=== PATIENT | female | born 1955 | race Caucasian/White ===

== ENCOUNTER → 2018-12-28 | Outpatient (CLI) | payer OTHER ==
--- NOTE | 2018-12-28 16:21 | RAD ---
MR of the right hip HISTORY: Right hip and thigh pain, getting worse. TECHNIQUE: Routine multiplanar sequences are obtained. FINDINGS: Abnormal signal within the right femoral head, centered anterosuperiorly, characteristic of osteonecrosis. There may be minimal subchondral bone plate collapse. Moderate right hip DJD. Small right hip joint effusion. No evidence of labral detachment. Mild soft tissue edema about the right hip. Gluteus minimus and medius tendons are intact. Hamstring tendon attachment is intact. Iliopsoas and rectus femoris tendon attachments are intact. IMPRESSION: 1. 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 2. Moderate right hip DJD. 3. Small right hip joint effusion. Electronically signed by: Jovany Gordon MD (12/28/2018 4:18 PM) [facility]
== END | disposition home or self-care (01) ==
LOC: MRI 11:28
PROVIDERS: ATTEND Orthopaedic Surgery
DX: M16.11 Unilateral primary osteoarthritis, right hip (principal); M25.451 Effusion, right hip; M87.851 Other osteonecrosis, right femur
CPT/HCPCS: 73721

== ENCOUNTER 2019-01-11 10:12 | Day surgery (SDC) | payer OTHER ==
[~2019-01-11] VITALS: Ht 162.6 cm; Wt 59.0 kg
[~2019-01-11 10:12] MED LIST: ASCO1TAB14 PO; ASCO500C PO; CYCL10TA2 PO; ELDE1CAP PO; HYDROmorphone 2 MG/ML VIAL IV PRN; IV RINGERS,LACTATED 1000ML 1,000 ML IV SCH; LIDOCAINE 1% PF 2 ML VIAL. ID PRN; MELA3TAB56 PO; MORPHINE SULFATE 2 MG/ML VIAL. IV PRN; OMEG-165 PO; ONDANSETRON PF 4 MG/2 ML VIAL. IV PRN; PROCHLORPERAZINE 10 MG/2 ML VIAL. IV PRN; TRAM50TA PO; beet root; fentaNYL PF VIAL 100 MCG/2 ML VIAL IV PRN
--- NOTE | 2019-01-11 10:27 | DISCH ---
DISCHARGE INSTRUCTIONS Condition on Discharge Condition on Discharge: Stable Activity After Discharge Activity Instructions for Disc: Other ROM activity Bathing Instructions: Shower-keep dressing dry Weight Bearing Status after Di: Partial weight bearing Diet after Discharge Diet after Discharge: Regular Wound Incision Care Wound/Incision Care: Ice to area for comfort, Keep wound/cast CDI, Change dressing Contacting the DRTessa after DC Call your doctor for: Concerns you may have Follow-Up Follow up with: Amber in 2 weeks JOHN LEONG II, MD Jan 11, 2019 10:27
[2019-01-11] MEDS ORDERED: PROPOFOL 20 ML IV ONE (10:57)
[2019-01-11] MEDS ORDERED: LIDOCAINE 2% PF 5 ML VIAL. ONE (10:57)
[2019-01-11] MEDS ORDERED: DEXAMETHASONE SOD PHOS 4 MG/ML VIAL ONE (10:57)
[2019-01-11] MEDS ORDERED: fentaNYL PF VIAL 100 MCG/2 ML VIAL ONE (10:57)
[2019-01-11] MEDS ORDERED: ONDANSETRON PF 4 MG/2 ML VIAL. ONE ×2 (10:57→12:24)
[2019-01-11] MEDS ORDERED: BUPIVACAINE MPF 0.5% 30 ML VIAL. ONE (11:14)
[2019-01-11] MEDS ORDERED: LIDOCAINE 1% 20 ML VIAL. ONE (11:14)
--- NOTE | 2019-01-11 12:28 | PDOC4 ---
Operative Note Operative Note Date of procedure: 01/11/2019 Surgeon: Adair Leong Asst.: Reese Jules, advanced practice registered nurse Preoperative diagnosis: Right hip avascular necrosis without collapse Postoperative diagnosis: Same Procedure performed: Right hip core decompression Anesthesia: Gen. Blood loss:5 mL Complications: none Reason for procedure: Patient is very pleasant individual who is referred to see me for several months of hip pain and an MRI had been obtained which revealed AVN. X-rays and MRI were reviewed by myself. There was no degenerative change or advanced collapse. The patient and I had a discussion of the risks, benefits, and alternatives to the above procedure and she elected to proceed. Description of procedure: Patient was greeted in the preoperative area by myself for the correct extremity was verified and marked. They were taken to the operative suite and her antibiotics were started as they were brought back. Once in the operating room, the patient was transferred gently supine to the fracture table and secured the bed with all pressure points padded. Left lower extremity was placed into a well-leg alvarez and right leg was in a traction ski boot. We did not use traction for this procedure though. The patient underwent a successful induction of a general anesthetic prior to this. After this, I brought in C-arm to ensure I could obtain adequate images. We then proceeded prep and drape right lower extremity and hip in our usual sterile fashion and conducted our standard preoperative timeout. I then brought in C-arm to localize the spot adjacent to her lesser trochanter and made an incision in accordance with this. I then thoroughly dissected down to fascia, incised fashion line with the skin incision and placed the guidewire against bone and used biplanar fluoroscopy to guide my position and trajectory as I passed the tip of the guidewire through the lesion 3 times. After this, the wound was thoroughly irrigated out. Fascia was closed with simple interrupted #1 Vicryl, inverted interrupted 2-0 subcutaneous tissue and 3-0 Monocryl was used for skin in a buried subcuticular fashion. Local anesthetic was injected into the ernie- incisional soft tissues. No complications. She tolerated surgery well. At the conclusion, she was laid supine on the fracture table and awakened from anesthesia. She was transferred gently supine to the recovery room cart and taken to PACU in a stable next bit condition. Postoperative plan is to allow partial weightbearing. I will see her back in 2 weeks, sooner should a problem arise. ADAIR LEONG II, MD Jan 11, 2019 12:27
[2019-01-11] MEDS ORDERED: HYDROcodone/APAP 5/325MG 1 TAB TABLET PO ONE (12:45)
[2019-01-11 12:52] VITALS: BP 113/78
== END 2019-01-11 13:50 | disposition home or self-care (01) ==
LOC: SURG 10:12
PROVIDERS: ATTEND Orthopaedic Surgery Sports Medicine
DX: M87.851 Other osteonecrosis, right femur (principal); Z87.891 Personal history of nicotine dependence; Z72.89 Other problems related to lifestyle
CPT/HCPCS: 27299; 76000; 97161; C1887; J0690; J1100; J2001; J2405; J2704; J3010; J3490

== ENCOUNTER → 2020-09-18 | Outpatient (CLI) | payer BC ==
[~2020-09-18] MED LIST changes: +CHOL10004 PO; +FINA5TAB4 PO; +FLAX10003 PO; -HYDROmorphone 2 MG/ML VIAL IV PRN; +IBUP-1060 PO; -IV RINGERS,LACTATED 1000ML 1,000 ML IV SCH; -LIDOCAINE 1% PF 2 ML VIAL. ID PRN; +MELA3TAB4 PO; -MELA3TAB56 PO; -MORPHINE SULFATE 2 MG/ML VIAL. IV PRN; +MULT-650 PO; -ONDANSETRON PF 4 MG/2 ML VIAL. IV PRN; -PROCHLORPERAZINE 10 MG/2 ML VIAL. IV PRN; -fentaNYL PF VIAL 100 MCG/2 ML VIAL IV PRN; +nutrafol PO
[2020-09-18 13:44] LABS: CALCIUM 9.4 mg/dL (8.5-10.1); CREATININE 0.6 mg/dL (0.6-1.0); GFR 100.3; POTASSIUM 4.3 mmol/L (3.5-5.1)
--- NOTE | 2020-09-18 13:44 | EKG ---
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
[2020-09-18 13:49] LABS: BASO # 0.1 x10^3/uL (0.0-0.2); BASO % 1 % (0-3); EOS # 0.1 x10^3/uL (0.0-0.7); EOS % 2 % (0-3); HEMATOCRIT 40.7 % (36.0-47.0); LYMPH # 2.2 x10^3/uL (1.0-4.8); LYMPH % 34 % (24-48); MEAN CORPUSCULAR HEMOGLOBIN 31 pg (25-35); MEAN CORPUSCULAR HGB CONC 34 g/dL (31-37); MEAN CORPUSCULAR VOLUME 91 fL (79-100); MONO # 0.6 x10^3/uL (0.0-1.1); MONO % 9 % (0-9); NEUT # 3.5 x10^3/uL (1.8-7.7); NEUT % 53 % (31-73); PLATELET COUNT 267 x10^3/uL (140-400); RED BLOOD COUNT 4.46 x10^6/uL (3.50-5.40); RED CELL DISTRIBUTION WIDTH 11.9 % (11.5-14.5); WHITE BLOOD COUNT 6.5 x10^3/uL (4.0-11.0)
[2020-09-18 13:56] LABS: PROTHROMBIN TIME PATIENT 12.3 SEC (11.7-14.0)
--- NOTE | 2020-09-18 16:30 | RAD ---
AP and Lateral Views of the Chest 09/18/2020 1:52 PM Indication: Reason: PRE-OP CHEST, HIP SURGERY / Spl. Instructions: / History: Comparison: None Findings: There is no focal consolidation or infiltrate identified. The cardiomediastinal silhouette is within normal limits. There is no evidence of pneumothorax or pleural effusion. No acute osseous a bnormalities are identified. Impression: No evidence of acute cardiopulmonary process. Electronically signed by: Jose Lao MD (09/18/2020 4:27 PM) [id number]
[2020-09-19 05:19] LABS: HEMOGLOBIN A1C 6.3 % (4.8-5.6)
== END ==
LOC: SURGPAT 13:03
PROVIDERS: ATTEND Orthopaedic Surgery
DX: Z01.818 Encounter for other preprocedural examination (principal); M87.051 Idiopathic aseptic necrosis of right femur
CPT/HCPCS: 36415; 71046; 80048; 82040; 82306; 83036; 85025; 85610; 85651; 85730; 87641; 93005

== ENCOUNTER 2020-10-01 08:51 | Observation (INO) | payer BC, MEDICARE ==
[2020-09-18 13:50] VITALS: BP 131/62
[~2020-10-01] VITALS: Ht 160 cm; Wt 63.0 kg
[2020-10-01] VITALS (11 sets, daily range): BP systolic 100–153; BP diastolic 35–68
[~2020-10-01 08:51] MED LIST changes: +ACETAMINOPHEN 500 MG TABLET PO PRN; +GABAPENTIN 300 MG CAPSULE. PO PRN; +HYDROmorphone 2 MG/ML VIAL IVP PRN; +IV RINGERS,LACTATED 1000ML 1,000 ML IV SCH; +MELOXICAM 7.5 MG TABLET PO PRN; +MORPHINE SULFATE 2 MG/ML INJ. IVP PRN; +MORPHINE SULFATE 5 MG, KETOROLAC 30MG VIAL 30 MG, ROPIVacaine 0.5% PF 60 ML, EPINEPHrin... INT ART ONE; +PROCHLORPERAZINE 10 MG/2 ML VIAL. IVP PRN; +TRANEXAMIC ACID 1,000 MG in IV NS 50ML -- 1ST BAG INJ ONE; +TRANEXAMIC ACID 1,000 MG in IV NS 50ML -- 2ND BAG INJ ONE; +ceFAZolin SODIUM IV Push 1 GM VIAL. IVP PRN; +fentaNYL PF VIAL 100 MCG/2 ML VIAL IVP PRN
[2020-10-01 09:26] LABS: PROTHROMBIN TIME PATIENT 11.9 SEC (11.7-14.0)
--- NOTE | 2020-10-01 09:28 | PREOP HP ---
DATE OF SERVICE: 10/01/2020 PREOPERATIVE HISTORY AND PHYSICAL CHIEF COMPLAINT: Right hip pain and degenerative joint disease. HISTORY OF PRESENT ILLNESS: The patient is a 64-year-old female that had a previous what she calls a drilling procedure sounds like for avascular necrosis of her right hip by Dr. Clark and indicated a lot of increased pain since she jammed her hip missing a stair. Her indicates that she had been having symptoms well before this, but not as severe. Her leg collapsed and she was having pain mainly over the hip and knee. The knee has since resolved, but the hip continues to be very severe in the groin radiating part way down the thigh. PAST MEDICAL HISTORY: Significant for depression and some chronic pain issues. PAST SURGICAL HISTORY: Right hip core decompression in 01/2019. FAMILY HISTORY: She denies any significant family history. Mother and father are both . SOCIAL HISTORY: She is a former smoker, quit a couple of years ago. Occasional alcohol use couple times a week. Denies drug use. MEDICATIONS: List is reviewed. ALLERGIES: She has no known drug allergies. REVIEW OF SYSTEMS: Denies any chest pain, shortness of breath, constitutional symptoms, fever, chills, focal weakness, numbness, tingling, or other findings, otherwise negative review of systems. PHYSICAL EXAMINATION: VITAL SIGNS: Per admission sheet. HEENT: Atraumatic, normocephalic. HEART: Regular rate and rhythm. LUNGS: Clear to auscultation bilaterally. ABDOMEN: Benign. EXTREMITIES: On examination of the right hip, she is very tender at her already decreased terminal range of motion compared to the left. Leg lengths are grossly equal. There is no instability. There is minimal tenderness over the trochanteric bursa on either side. Negative straight leg raise bilaterally. Normal alignment, stability, bilateral knees and ankles. She has minimal joint line tenderness at the knee and really more tenderness over the iliotibial band previously, which is now mostly resolved. 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 TREATMENT PLAN: I had previously gone over with her and reviewed today risks, benefits, postoperative course of total hip arthroplasty including the possibility of infection, nerve or blood vessel damage, leg length inequality, instability, medical or other anesthetic complications among others. All her questions were answered. She wishes to proceed with surgical evaluation and treatment, which will include joint center observation to follow. ISAAC DR: Bob TID: [id number]
[2020-10-01] MEDS ORDERED: ROCURONIUM 50 MG/5 ML VIAL. ONE (09:54)
[2020-10-01] MEDS ORDERED: MORPHINE SULFATE 2 MG/ML INJ. IVP PRN (10:00)
[2020-10-01] MEDS ORDERED: diphenhydrAMINE 50 MG/ML VIAL IVP PRN (10:00)
[2020-10-01] MEDS ORDERED: oxyCODONE IR 5 MG TABLET PO PRN (10:00)
[2020-10-01] MEDS ORDERED: DEXTROSE 50% 25 GM / 50ML DISP.SYRIN. IV PRN (10:00)
[2020-10-01] MEDS ORDERED: 0.9 % SODIUM CHLORIDE 10 ML DISP.SYRIN. IV PRN (10:00)
[2020-10-01] MEDS ORDERED: IV NORMAL SALINE 1000ML BAG 1,000 ML IV SCH (10:00)
[2020-10-01] MEDS ORDERED: PROCHLORPERAZINE 5 MG TABLET. PO PRN (10:00)
[2020-10-01] MEDS ORDERED: fentaNYL PF VIAL 100 MCG/2 ML VIAL IVP PRN (10:00)
[2020-10-01] MEDS ORDERED: CALCIUM CARBONATE 500 MG TAB.CHEW PO PRN (10:00)
[2020-10-01] MEDS ORDERED: MORPHINE SULFATE 5 MG, KETOROLAC 30MG VIAL 30 MG, ROPIVacaine 0.5% PF 60 ML, EPINEPHrin... INT ART ONE (10:30)
[2020-10-01] MEDS ORDERED: VANCOMYCIN 1 GM VIAL. ONE ×2 (10:49)
[2020-10-01] MEDS ORDERED: PHENYLEPHRINE in 0.9% NACL PF 1 MG/10 ML SYRINGE. IV ONE (10:52)
[2020-10-01] MEDS ORDERED: LIDOCAINE 2% PF 5 ML VIAL. ONE (11:08)
[2020-10-01] MEDS ORDERED: DEXAMETHASONE SOD PHOS 4 MG/ML VIAL ONE (11:08)
[2020-10-01] MEDS ORDERED: SEVOFLURANE > 120 MINUTES. IH ONE (11:08)
[2020-10-01] MEDS ORDERED: ONDANSETRON PF 4 MG/2 ML VIAL. ONE (11:08)
[2020-10-01] MEDS ORDERED: PROPOFOL 10 MG/ML (20ML) VIAL. IV ONE (11:08)
[2020-10-01] MEDS: ONDANSETRON ODT 4 MG TAB.RAPDIS. PO SCH ×2 (12:00→18:00)
[2020-10-01] MEDS: ONDANSETRON PF 4 MG/2 ML VIAL. IVP SCH ×2 (12:00→18:00)
[2020-10-01] MEDS ORDERED: fentaNYL PF VIAL 100 MCG/2 ML VIAL ONE (12:20)
[2020-10-01] MEDS ORDERED: GLYCOPYRROLATE 1 MG/5 ML VIAL. ONE (12:26)
[2020-10-01] MEDS ORDERED: NEOSTIGMINE METHYLSULFATE 5 MG/5 ML SYRINGE. ONE (12:27)
--- NOTE | 2020-10-01 14:28 | PDOC4 ---
Operative Note Operative Note Date of surgery: 10/01/2020 Preoperative diagnosis: Degenerative joint disease right hip Postoperative diagnosis: Same Operative procedure: Right total hip arthroplasty with anterior approach Surgeon [place] Transport Conductor: Jm nolasco Anesthesia: General Estimated blood loss: 150 cc Complications: None Drains: None Operative indications: Please see my orthopedic clinic note and dictated history and physical for detailed operative indications and note that we covered risks benefits postoperative course of the procedure. We covered the possibility of leg length inequality infection nerve or blood vessel damage instability premature wear or loosening medical or other anesthetic complications among others. All her questions were answered and she wishes to proceed with surgical evaluation and treatment having given informed consent Operative text: Patient was identified procedure verified patient placed in the supine position on the Horton fracture table after adequate amounts of general anesthesia were administered. All bony prominences were well-padded and right hip was prepped and draped in the standard sterile fashion. After timeout was performed patient procedure identified and verified an incision was made just distal to the anterior superior iliac spine running along the tensor fascia vinay for a distance of about 4 inches. Fascia was incised tensor fascia vinay was taken laterally and circumflex vessels were located and coagulated and the anterior capsule was exposed with the rectus femoris gently retracted medially along with the underlying fascia that was dissected free. Capsule was split in a T-shaped incision and superior aspect of the capsule was excised and further superior release was carried out with the hip in external rotation. Hip was returned to 40 degrees external rotation and a napkin ring cut was made with an Avenir Suma broach for reference napkin ring was removed and femoral head was removed and sized. Reaming was carried out to a size 47 with a size 48 Biomet G7 acetabular shell was placed in proper version under fluoroscopic guidance and excellent scratch fit was noted and a single screw was placed superiorly for additional fixation. A 32 mm vitamin E liner was impacted into place. Femur was brought into maximum external rotation extension and adduction and release was carried out at the 11 o'clock position to free up the femur and retractors were placed medially and above the greater trochanter for maximum femoral exposure box osteotome was used along with the rattail rasp and successive size broaching up to a size 4 which provided excellent stability and fit within the canal. Calcar reaming was carried out and trial fitting with a -3.5 32 mm head to reproduce leg length and offset appropriately under fluoroscopic guidance. Trial components were removed and a size 4 standard offset collared Avenir stem was impacted into place with a -3.5 ceramic 32 mm head. Excellent stability and range of motion were noted and leg length and offset were reproduced closely according to measurements from preoperatively on the operative leg and the contralateral side. Thorough irrigation carried out with normal saline solution and pulse lavage. Intra-articular mixture was injected subperiosteally throughout the joint capsule and subcutaneous areas and 1 g vancomycin sprinkled throughout the joint capsule area. Fascia was closed with #1 PDS strata fix suture in a running fashion subcutaneous closure with buried Vicryl skin closure with subcuticular Monocryl and a lissy dressing was applied. Patient was returned to recovery room in stable condition having tolerated the procedure well. Jm vanegas assist was present for the procedure and assisted in the patient positioning prepping draping retraction closure and dressings RHONDA WORRELL MD Oct 01, 2020 14:28
[2020-10-01] MEDS ORDERED: WARFARIN 7.5 MG TABLET. PO ONE (16:00)
[2020-10-01] MEDS: FERROUS SULFATE 325 MG TABLET. PO SCH (17:29)
[2020-10-01] MEDS: ceFAZolin SODIUM IV Push 1 GM VIAL. IVP SCH ×2 (17:29→21:26)
[2020-10-01] MEDS: ZOLPIDEM 5 MG TABLET. PO PRN (21:27)
[2020-10-02 03:00] VITALS: BP 103/50
[2020-10-02] MEDS: ceFAZolin SODIUM IV Push 1 GM VIAL. IVP SCH (03:43)
[2020-10-02] MEDS: ONDANSETRON PF 4 MG/2 ML VIAL. IVP SCH ×2 (05:36)
[2020-10-02] MEDS: GABAPENTIN 100 MG CAPSULE. PO SCH ×3 (05:37→20:26)
[2020-10-02] MEDS: ONDANSETRON ODT 4 MG TAB.RAPDIS. PO SCH ×2 (05:37)
[2020-10-02] MEDS ORDERED: MAGNESIUM HYDROXIDE 2,400 MG/30 ML ORAL.SUSP. PO PRN (06:00)
[2020-10-02] MEDS: traMADol 50 MG TABLET PO SCH ×3 (06:33→17:15)
[2020-10-02 07:00] VITALS: BP 88/46
[2020-10-02] MEDS ORDERED: POLYETHYLENE GLYCOL 3350 17 GM PACKET. PO PRN (11:00)
[2020-10-02] MEDS: FERROUS SULFATE 325 MG TABLET. PO SCH ×2 (11:01→17:14)
[2020-10-02] MEDS: MELOXICAM 7.5 MG TABLET PO SCH (11:01)
[2020-10-02] MEDS: MULTIVITAMIN with MINERAL TABLET. PO SCH (11:01)
[2020-10-02] MEDS: ACETAMINOPHEN 500 MG TABLET PO SCH ×3 (11:02→20:26)
--- NOTE | 2020-10-02 11:58 | NUR ---
Pharmacy Warfarin Dosing Note S:Pharmacy consulted to assist with anticoagulation therapy started with target INR: 1.6 - 2.5 O:MARIZA SCOTT is a 64 year old F with [facility]: Last INR: 1.1 Last dose of 7.5 mg given on 10/01/20 at 1729 A:INR of 1.1 is below desired range. Target range for this patient is: 1.6 - 2.5 P: Warfarin dose: 5 mg Today at 1600 Bridge Therapy: None Next INR due tomorrow Pharmacy anticoagulation service will continue to follow. Anamaria Tsang RPH, 10/02/20 [id number]
[2020-10-02] MEDS ORDERED: ONDANSETRON ODT 4 MG TAB.RAPDIS. PO PRN (12:00)
[2020-10-02] MEDS ORDERED: ONDANSETRON PF 4 MG/2 ML VIAL. IVP PRN (12:00)
[2020-10-02 15:00] VITALS: BP 108/54
[2020-10-02] MEDS ORDERED: WARFARIN 5 MG TABLET. PO ONE (16:00)
[2020-10-02] MEDS ORDERED: BISACODYL 10 MG SUPP.RECT. PR PRN (16:00)
--- NOTE | 2020-10-02 18:03 | PDOC ---
PROGRESS NOTES Date of Service DATE: 10/02/20 TIME: 18:01 Subjective Subjective Problems overnight: Getting up and around well, concerned that she has stairs at home, pain control currently with meloxicam and does not like tramadol in the past Objective Vital Signs Vital Signs Date Time Temp Pulse Resp B/P (MAP) Pulse Ox O2 Delivery O2 Flow Rate FiO2 10/02/20 17:15 96 Room Air 8.0 10/02/20 15:00 98.2 104 18 108/54 (72) 98.2 Physical Exam Елена dressing clean dry intact leg lengths equal distal neurovascular status intact Labs Laboratory Tests Test 10/01/20 08:55 10/02/20 04:00 Prothrombin Time 11.9 SEC (11.7-14.0) 14.0 SEC (11.7-14.0) Prothromb Time International Ratio 0.9 (0.8-1.1) 1.1 (0.8-1.1) Activated Partial Thromboplast Time 28 SEC (24-38) Laboratory Tests Test 10/02/20 04:00 Prothrombin Time 14.0 SEC (11.7-14.0) Prothromb Time International Ratio 1.1 (0.8-1.1) Imaging Intraoperative fluoroscopy shows equal leg lengths and excellent placement total hip arthroplasty Assessment Assessment POD#1 total hip arthroplasty Plan Plan of Care Likely discharge tomorrow after physical therapy Coumadin anticoagulation, recommended meloxicam in lieu of ibuprofen for pain control due to being on blood thinner Justicifation of Admission Dx: Justifications for Admission: Justification of Admission Dx: N/A RHONDA WORRELL MD Oct 02, 2020 18:03
[2020-10-02] MEDS ORDERED: MELO15TA23 PO (18:17)
[2020-10-02] MEDS ORDERED: WARF-31 PO (18:17)
--- NOTE | 2020-10-02 18:20 | SNU/HH DC ---
DISCHARGE WITH HOME HEALTH DISCHARGE INFORMATION: Discharge Date: Oct 03, 2020 Final Diagnosis: Status post total hip arthroplasty for avascular necrosis Condition on Discharge: Stable CODE STATUS: Code Status: Full HOME HEALTH: Face to Face: I certify this patient is under my care and that I, or a nurse practitioner or physician's phlebotomy lab assistant working with me, had a face to face encounter that meets the physician face to face encounter requirements with this patient on [10/02/2020]. Medical Complications: S/P Joint Replacement Prison For: Assess/Skilled Observatio RN For Eval/Treatment: Yes Physical Therapy For: Evalulation/Treatment Pt Meets Homebound Status: Limited distance walking POST DISCHARGE ORDERS: Activity Instructions for Disc: Progressive ambulation Weight Bearing Status after Di: As tolerated Bathing Instructions: Shower-keep dressing dry DIET AFTER DISCHARGE: Regular Wound/Incision Care: Ice to area for comfort, Keep wound/cast CDI, Do not change dressing FOLLOW-UP: Follow up with: Dr. Saxena or Shannon 2 weeks postoperatively Warfarin Follow UP: [place] pharmacy anticoagulation clinic to manage warfarin dosage test CERTIFICATION STATEMENT: Certification Statement: Certification Statement: Based on the above finding, I certify that this patient is confined to the home and needs intermittent correction care, physical therapy and/or speech therapy, or continues to need occupational therapy.~ This patient is under my care, and I have initiated the establishment of the plan of care.~ This patient will be followed by myself or a community physician who will periodically review the plan of care. Home Meds Reported Medications [nutrafol] No Conflict Check, 1 TAB PO DAILY 09/18/20 Cholecalciferol (Vitamin D3) (Vitamin D3 ) 25 Mcg Tablet, 25 MCG PO DAILY for SUPPLEMENT, TAB 1,000 UNITS = 25 MCG 09/18/20 Flaxseed Oil (FLAX OIL) 1,000 Mg Capsule, 1000 MG PO DAILY PRN for upplement, CAP 09/18/20 Multivits-Min/Iron/FA/Lutein (Centrum Silver Women Tablet) 1 Each Tablet, 1 EACH PO DAILY for supplement, TAB 09/18/20 Ibuprofen (IBUPROFEN) 800 Mg Tablet, 800 MG PO PRN Q6HRS PRN for INFLAMMATION, TAB 09/18/20 Finasteride (FINASTERIDE) 5 Mg Tablet, 1 TAB PO DAILY for bladder, #30 TAB 11 Refills 09/18/20 Ascorbic Acid (VITAMIN C) 500 Mg Capsule.er, 500 MG PO DAILY for supplement, CAP.SR 01/10/19 Melatonin (MELATONIN) 3 Mg Tablet, 5 MG PO HS for insomnia, TAB 01/10/19 Ascorbic Acid/Vitamin E/Biotin (Hair Skin Nails-Biotin Gummies) 1 Each Tab.chew, 1 EACH PO DAILY for supplement, TAB.CHEW 01/10/19 Loraine-3S/Dha/Epa/Fish Oil (Fish Oil 1,000 mg Softgel) 1 Each Capsule, 1 EACH PO DAILY for supplement, CAP 01/10/19 RHONDA SAXENA MD Oct 02, 2020 18:20
[2020-10-02 19:00] VITALS: BP 91/48
[2020-10-02] MEDS: ZOLPIDEM 5 MG TABLET. PO PRN ×2 (20:26→21:36)
[2020-10-02 23:00] VITALS: BP 91/47
[2020-10-03 03:00] VITALS: BP 103/55
[2020-10-03] MEDS: ACETAMINOPHEN 500 MG TABLET PO SCH ×3 (03:00→14:32)
[2020-10-03] MEDS: GABAPENTIN 100 MG CAPSULE. PO SCH ×2 (05:51→13:50)
[2020-10-03] MEDS: traMADol 50 MG TABLET PO SCH ×3 (05:51→11:59)
[2020-10-03 07:00] VITALS: BP 100/34
[2020-10-03 08:24] LABS: HEMATOCRIT 37.7 % (36.0-47.0); HEMOGLOBIN 12.7 g/dL (12.0-15.5)
[2020-10-03 08:33] LABS: PROTHROMBIN TIME PATIENT 16.3 SEC (11.7-14.0)
[2020-10-03] MEDS: MELOXICAM 7.5 MG TABLET PO SCH (08:53)
[2020-10-03] MEDS: MULTIVITAMIN with MINERAL TABLET. PO SCH (08:53)
[2020-10-03] MEDS: FERROUS SULFATE 325 MG TABLET. PO SCH (08:53)
[2020-10-03] MEDS ORDERED: POLYETHYLENE GLYCOL 3350 17 GM PACKET. PO SCH (09:00)
--- NOTE | 2020-10-03 09:58 | NUR ---
Pharmacy Warfarin Dosing Note S:Pharmacy consulted to assist with anticoagulation therapy started with target INR: 1.6 - 2.5 O:MARIZA SCOTT is a 64 year old F with [facility]: Last INR: 1.3 Last HGB: 12.7 Last HCT: 37.7 Last PLT: -- Last dose of 5 mg given on 10/02/20 at 1611 A:INR of 1.3 is below desired range. Target range for this patient is: 1.6 - 2.5 P: Warfarin dose: 5 mg prior to discharge Bridge Therapy: None Next INR due 10/07/20 Pharmacy anticoagulation service will continue to follow. JEFF KULKARNI RPH, 10/03/20 0935
[2020-10-03 11:00] VITALS: BP 103/40
[2020-10-03] MEDS ORDERED: WARFARIN 5 MG TABLET. PO ONE (14:00)
--- NOTE | 2020-10-03 15:16 | NUR ---
pt is discharged home with home health via wheelchair via this RN. pt is in stable condition. pt has all belongings with her. pt was informed that her prescriptions were sent to her pharmacy. pt received discharge instructions and stated she had no further questions for me. pt has her own walker from home to use.
--- NOTE | 2020-10-04 09:11 | PATHOLOGY ---
[facility] Accession Number: [id number] . 01 Material submitted: . femur - FEMORAL HEAD RIGHT. Modifiers: head, right . 01 Clinical history: . OSTEOARTHRITIS OF RIGHT HIP RIGHT TOTAL HIP ARTHROPLASTY ANTERIOR RT HIP AVN . 02 Diagnosis: Femoral head and separate reamings of bone and cartilage, anterior right total hip arthroplasty: - Subarticular avascular necrosis with focal separation and fragmentation of articular cartilage. (JPM:tentering machine off bearer; 10/03/2020) MBR 10/03/2020 1539 Local . 02 Electronically signed: . Jamil Abraham MD, Pathologist NPI- [id number] . 01 Gross description: . The specimen is received in formalin, labeled "Lindsay Madison, femoral head". The specimen is additionally labeled on the requisition as, "right femoral head". Received is a femoral head measuring 4.6 x 4.3 x 3.2 cm in greatest dimensions. The articular surface is pale hernandez and smooth to disrupted in appearance. Eburnation is not grossly identified. Sectioning reveals pale hernandez to yellow-hernandez, predominately softened cut surfaces with possible necrosis identified underlying the cartilage. Efficiency Expert sections are submitted in cassettes A1 and A2, following decalcification. . Also received within the specimen container are bone reamings measuring 4.7 x 4.5 x 1.2 cm in aggregate dimensions. The specimen is submitted representatively in cassette A3, following light decalcification. (CAA; 10/02/2020) QAC/QAC 10/02/2020 1534 Local . 02 Pathologist provided ICD-10: M16.11 . 02 CPT . 359687, [id number] Specimen Comment: A courtesy copy of this report has been sent to [phone], [phone] Specimen Comment: [id number] Specimen Comment: Report sent to / DR FREEMAN Performed at: [address] [facility], [place] [id number] MD Victorino Dwyer MD Phone: [phone] [facility]formed at: [facility] [address] [place], [place] [id number] MD Jamil Abraham MD Phone: [phone]
== END 2020-10-03 14:40 | disposition home health service (06) ==
LOC: SURG 08:51 → 4 NORTH 09:46
PROVIDERS: ADMIT Orthopaedic Surgery; ATTEND Orthopaedic Surgery
DX: M16.7 Other unilateral secondary osteoarthritis of hip (principal); M87.351 Other secondary osteonecrosis, right femur; F32.9 Major depressive disorder, single episode, unspecified; Z79.899 Other long term (current) drug therapy; Z98.890 Other specified postprocedural states; Z87.891 Personal history of nicotine dependence; Z96.649 Presence of unspecified artificial hip joint
CPT/HCPCS: 27130; 36415; 85014; 85018; 85610; 85730; 86850; 86900; 86901; 88304; 88311; 96361; 96374; 96376; 97110; 97116; 97150; 97162; 97166; 97530; 97535; A4213; A4930; A6223; A6258; A6402; A6550; C1755; C1776; G0378; G0379; J0171; J0690; J1100; J1885; J2270; J2370; J2405; J2704; J2710; J2795; J3010; J3370; J3490; J7030; 76000

== ENCOUNTER → 2020-11-04 | Outpatient (CLI) | payer MEDICARE ==
[~2020-11-04] MED LIST changes: -ACETAMINOPHEN 500 MG TABLET PO PRN; -GABAPENTIN 300 MG CAPSULE. PO PRN; -HYDROmorphone 2 MG/ML VIAL IVP PRN; -IV RINGERS,LACTATED 1000ML 1,000 ML IV SCH; +MELO15TA23 PO; -MELOXICAM 7.5 MG TABLET PO PRN; -MORPHINE SULFATE 2 MG/ML INJ. IVP PRN; -MORPHINE SULFATE 5 MG, KETOROLAC 30MG VIAL 30 MG, ROPIVacaine 0.5% PF 60 ML, EPINEPHrin... INT ART ONE; -PROCHLORPERAZINE 10 MG/2 ML VIAL. IVP PRN; -TRANEXAMIC ACID 1,000 MG in IV NS 50ML -- 1ST BAG INJ ONE; -TRANEXAMIC ACID 1,000 MG in IV NS 50ML -- 2ND BAG INJ ONE; +WARF-31 PO; -ceFAZolin SODIUM IV Push 1 GM VIAL. IVP PRN; -fentaNYL PF VIAL 100 MCG/2 ML VIAL IVP PRN
[2020-11-04 13:53] LABS: PROTHROMBIN TIME PATIENT 32.2 SEC (11.7-14.0)
== END ==
LOC: LAB 13:05
PROVIDERS: ATTEND Orthopaedic Surgery
DX: Z79.01 Long term (current) use of anticoagulants (principal)
CPT/HCPCS: 36415; 85610